=== PATIENT | female | born 1965 | race Caucasian/White ===

== ENCOUNTER 2018-09-28 11:30 | Emergency (ER) | payer OTHER ==
[~2018-09-28] VITALS: Ht 162.6 cm; Wt 86.5 kg
[~2018-09-28 11:30] MED LIST: CODEINE; SIMV5TAB14 PO; TEMA15CA PO; VERA120T5 PO; [UNRECOGNIZED DRUG - OTHER]
--- NOTE | 2018-09-28 12:53 | NUR ---
PT TO ROOM AT THIS TIME FROM LOBBY.
[2018-09-28 12:54] LABS: BASOPHILS # (AUTO) 0.03 x10^3/uL (0-0.1); BASOPHILS % (AUTO) 0 % (0-1); EOSINOPHILS # (AUTO) 0.14 x10^3/uL (0-0.4); EOSINOPHILS % (AUTO) 2 % (1-7); LYMPHOCYTES # (AUTO) 1.77 x10^3/uL (1-3.4); LYMPHOCYTES % (AUTO) 23 % (22-44); MD NO; MEAN CORPUSCULAR HGB CONC 33.6 g/dL (32.4-35.8); MEAN CORPUSCULAR VOLUME 86.1 fL (80-100); MONOCYTES # (AUTO) 0.53 x10^3/uL (0.2-0.8); MONOCYTES % (AUTO) 7 % (2-9); NEUTROPHILS # (AUTO) 5.36 x10^3/uL (1.8-6.8); NEUTROPHILS % (AUTO) 68 % (42-75); PLATELET COUNT 264 x10^3/uL (130-400); RED BLOOD COUNT 4.79 x10^6/uL (3.82-5.3); RED CELL DISTRIBUTION WIDTH 14.1 % (9.6-15.2)
[2018-09-28 13:05] LABS: ANION GAP 4 mmol/L (5-15); CALCIUM 9.2 mg/dL (8.5-10.1); CHLORIDE 109 mmol/L (98-107); CREATININE 0.74 mg/dL (0.55-1.02)
[2018-09-28 13:13] LABS: MICROSCOPIC AUTO
--- NOTE | 2018-09-28 13:20 | NUR ---
Assumed care of patient. C/O SOB, sternal chest pressure, and rapid weight gain (2lbs/week x several months.) 1+ BLE edema. Lungs clear. Placed on NIBP, pulse ox and surveillance monitor. Will continue to monitor.
[2018-09-28 13:27] LABS: CULTURE INDICATED? YES
[2018-09-28 13:41] LABS: FREE T4 (FREE THYROXINE) 0.74 ng/dL (0.76-1.46); TROPONIN I < 0.015 ng/mL (0.000-0.045)
[2018-09-28 14:25] VITALS: BP 138/80
--- NOTE | 2018-09-28 15:15 | NUR ---
Melinda valadez in [facility] - 09/28/18 at 1533 by CARINA Patient left prior to DC instructions. Patient ambulatory with steady gait.
--- NOTE | 2018-09-28 15:33 | NUR ---
Patient/Caregiver given discharge instructions and they have confirmed that they understand the instructions. Patient ambulatory with steady gait.
== END 2018-09-28 15:31 | disposition home or self-care (01) ==
LOC: ED 13:44
DX: R53.1 Weakness (principal); R60.0 Localized edema; R53.83 Other fatigue; F41.1 Generalized anxiety disorder; F32.9 Major depressive disorder, single episode, unspecified; I10 Essential (primary) hypertension; E78.5 Hyperlipidemia, unspecified; R05 Cough
CPT/HCPCS: 36415; 71046; 80048; 81001; 83880; 84439; 84443; 84484; 85025; 87086; 93005; 99284